=== PATIENT | female | born 1985 | race Hispanic/Latino ===

== ENCOUNTER 2018-03-30 14:07 | Emergency (ER) | payer BC ==
[2018-03-30 14:53] LABS: BASOPHILS % 0.3 % (0.0-1.0); EOSINOPHILS # (AUTO) 0.1 (0.0-0.4); EOSINOPHILS % 0.5 % (0.0-6.0); HEMATOCRIT 38.9 % (34.2-44.1); HEMOGLOBIN 13.5 g/dL (12.0-16.0); LYMPHOCYTES # (AUTO) 3.4 (1.0-3.2); LYMPHOCYTES % 27.8 % (18.0-39.1); MEAN CORPUSCULAR HEMOGLOBIN 30.1 pg (28-32); MEAN CORPUSCULAR HGB CONC 34.7 g/dL (31-35); MEAN CORPUSCULAR VOLUME 86.6 fL (81-99); MONOCYTES # (AUTO) 0.9 (0.2-0.8); MONOCYTES % 7.1 % (4.4-11.3); NEUTROPHILS # (AUTO) 7.9 (2.1-6.9); NEUTROPHILS % 63.8 % (38.7-80.0); PLATELET COUNT 197 x10e3/uL (140-360); RED BLOOD COUNT 4.49 x10e6/uL (3.6-5.1); RED CELL DISTRIBUTION WIDTH 13.1 % (11.7-14.4)
[2018-03-30 15:05] LABS: ALANINE AMINOTRANSFERASE 16 IU/L (0-55); ALBUMIN 3.5 g/dL (3.5-5.0); ALBUMIN/GLOBULIN RATIO 0.8 (0.8-2.0); ALKALINE PHOSPHATASE 93 IU/L (40-150); ANION GAP 15.9 mmol/L (8-16); BLOOD UREA NITROGEN 7 mg/dL (7-26); BUN/CREATININE RATIO 11 (6-25); CALCIUM 9.9 mg/dL (8.4-10.2); CARBON DIOXIDE 22 mmol/L (22-29); CHLORIDE 104 mmol/L (98-107); CREATINE KINASE 75 IU/L (29-168); CREATININE, SERUM 0.65 mg/dL (0.57-1.11); EST GLOMERULAR FILTRATION RATE > 60 ML/MIN (60-); GLUCOSE 103 mg/dL (74-118); POTASSIUM 3.9 mmol/L (3.5-5.1); SODIUM 138 mmol/L (136-145)
--- NOTE | 2018-03-30 15:11 | Diagnostic Imaging Report ---
EXAM: US OB COMPLETE SINGLE GEST DATE: 03/30/2018 12:00 AM INDICATION: , feels faint, pressure and vagina Patient is uncertain of her last menstrual period COMPARISON: None TECHNIQUE: Multiple transabdominal images of the pelvis were obtained. FINDINGS: G 2P1A 0 LMP unknown GA by FLAVIO: 20w6d GA by U/S: 21w4d Measurements: BPD 5.27 cm 22w0d HC 19.08 cm 21w2d AC 16.32cm 21w3d FL 3.68cm 21w5d Estimated Weight: 431gm (0 lbs. 15 oz) [<Hadlock>] Cervical Length: 3.3cm Amniotic Fluid Index: 17.8 cm Heart Rate: 153 bpm Type of Gestation: [place] Intrauterine Position: Cephalic size: appropriate for gestational age motion and organs seen: Bladder Stomach Four chamber cardiac view Kidneys Heart rate 153 bpm Umbical cord insertion 3 vessel cord No abnormalities identified. Placental Location: Posterior There is no evidence of placenta previa. Amniotic fluid volume is within normal range. There is no funneling of the internal os. IMPRESSION: Single living intrauterine without abnormality identified. Signed by: Dr. Ryan Moralez M.D. on 03/30/2018 3:07 PM
[2018-03-30 15:14] LABS: HCG,QUANTITATIVE 12408.71 mIU/mL (0-10)
[2018-03-30 17:01] LABS: CLARITY,URINE CLEAR (CLEAR); COLOR,URINE YELLOW (YELLOW)
[2018-03-30 17:02] LABS: BILIRUBIN,URINE NEGATIVE (NEGATIVE); KETONES,URINE TRACE (NEGATIVE); LEUKOCYTE ESTERASE ,URINE TRACE (NEGATIVE); NITRITE,URINE NEGATIVE (NEGATIVE); PROTEIN,URINE DIPSTICK NEGATIVE (NEGATIVE); URINE UROBILINOGEN 0.2 mg/dL (0.2 - 1)
[2018-03-30 17:03] LABS: BACTERIA,URINE FEW /HPF; EPITHELIAL CELLS,URINE FEW /LPF
[2018-03-30 17:43] VITALS: BP 101/99
== END 2018-03-30 17:42 | disposition home or self-care (01) ==
LOC: ER 14:07
DX: O99.342 Other mental disorders complicating pregnancy, second trimester (principal); F41.1 Generalized anxiety disorder; Z3A.00 Weeks of gestation of pregnancy not specified
CPT/HCPCS: 36415; 76805; 80053; 81001; 82550; 82553; 84484; 84702; 85025; 99284

== ENCOUNTER 2019-11-27 11:09 | Emergency (ER) | payer BC, OTHER ==
[~2019-11-27] VITALS: Ht 154.9 cm; Wt 74.8 kg
--- NOTE | 2019-11-27 11:32 | Emergency Department Note ---
History of Present Illnes History of Present Illness Chief Complaint: General Medicine Complaints History of Present Illness This is a 34 year old female c/o ARMS, LEGS, FACE TINGLING SINCE FRIDAY. STATES SHE TOOK WOMEN'S ONCE A DAY VITAMIN AND FELT SHE WAS ALLERGIC 2 WKS AGO SHE QUIT TAKING THE VITAMINS AND WAS STARTED ON 6 DAYS OF PREDNISONE 40 MG AND FINISHED ON FRIDAY. PT STATES HER BACK IS HURTING A LOT AND HAS A HEADACHE AND EARS FEEL TIGHT......PT IS NO ACUTE DISTRESS AT TIME OF TRIAGE. PT AAOX4. AMBULATORY STEADY GAIT. NO NEURO DEF. AT TIME OF TRIAGE. LMP 11/07. NO COVID S/S. 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 Any updates have been documented here. Past Medical History Recent Fever: No Clinical Suspicion of Infectio: No New/Unexplained Change in Ment: No Past Medical History: Anxiety Past Surgical History: None Social History Smoking Cessation: Never Smoker Counseling Performed: No Alcohol Use: None Any Illegal Drug Use: No TB Exposure/Symptoms: No Physically hurt or threatened: No Family History Family history of heart diseas: No Other Last Tetanus: UNK Any Pre-Existing Lines (PICC,: No Review of Systems Review of Systems Constitutional: Reports no symptoms EENTM: Reports no symptoms Cardiovascular: Reports no symptoms Respiratory: Reports no symptoms Gastrointestinal: Reports no symptoms Genitourinary: Reports no symptoms Musculoskeletal: Reports no symptoms Integumentary: Reports no symptoms Neurological: Reports as per HPI, Reports headache, Reports paresthesia Psychological: Reports no symptoms Endocrine: Reports no symptoms Hematological/Lymphatic: Reports no symptoms Physical Exam Related Data Allergies: Coded Allergies: No Known Allergies (Unverified , 03/30/18) Triage Vital Signs Vital Signs Date Time Temp Pulse Resp B/P (MAP) Pulse Ox O2 Delivery O2 Flow Rate FiO2 11/27/19 11:12 98.2 88 16 134/90 99 Room Air Vital signs reviewed: Yes Physical Exam CONSTITUTIONAL Constitutional: Present well-developed, Present well-nourished HENT HENT: Present normocephalic, Present atraumatic, Present oropharynx clear/moist, Present nose normal HENT L/R: Present left ext ear normal, Present right ext ear normal EYES Eyes: Reports PERRL, Reports conjunctivae normal NECK Neck: Present ROM normal PULMONARY Pulmonary: Present effort normal, Present breath sounds normal CARDIOVASCULAR Cardiovascular: Present regular rhythm, Present heart sounds normal, Present capillary refill normal, Present normal rate GASTROINTESTINAL Abdominal: Present soft, Present nontender, Present bowel sounds normal GENITOURINARY Genitourinary: Present exam deferred SKIN Skin: Present warm, Present dry MUSCULOSKELETAL Musculoskeletal: Present ROM normal NEUROLOGICAL Neurological: Present alert, Present oriented x 3, Present no gross motor or sensory deficits PSYCHOLOGICAL Psychological: Present mood/affect normal, Present judgement normal Assessment & Plan Medical Decision Making MDM C/O TINGLING SENSATION OVER ENTIRE BODY, MILD LOMBARDI'S X 2 DAYS AFTER TAKING 6 DAY COURSE OF 40 MG QD PREDNISONE - LIKELY S/E OF PREDNISONE, PHYSICAL EXAM NORMAL Reassessment Reassessment DC HOME, F/U PCP FRIDAY, RTED PRN Assessment & Plan Final Impression: (1) Medication side effect (2) Paresthesia Depart Disposition: HOME, SELF-CARE Last Vital Signs Date Time Temp Pulse Resp B/P (MAP) Pulse Ox O2 Delivery O2 Flow Rate FiO2 11/27/19 11:12 98.2 88 16 134/90 99 Room Air STAR EARL MD Nov 27, 2019 11:32
--- OUTSIDE RECORDS SUMMARY | 2019-11-27 11:37 | XMS REPORT | Continuity of Care Document ---
Author Author [facility], [facility] Address Unknown Phone Unavailable Care Team Providers Care Television News Producer Name Role Phone Ortho[employer]tag Information [employer] Unavailable Un available Problems No Data Provided for This Section Medications Medication Details Route Status Patient Instructions Ordering Provider Order Date Source amoxicillin 875 mg oral tablet 875 mg = 1 tab, PO, Q12H, X 10 day, # 20 tab, 0 Refill(s), [facility] [facility] [id number] No Longer Active 12/21/2017 [facility] Allergies, Adverse Reactions, Alerts No Known Medication Allergies Immunizations No Data Provided for This Section Results Order Name Results Value Reference Range Date Interpretation Comments Source URINE AND STOOL POC UA Nit Negative *NA* (12/21/17 10:51 AM) Negative 12/21/2017 [facility] URINE AND STOOL POC UA Uro 0.2 0.1 - 1.0 12/21/2017 [facility] URINE AND STOOL POC UA Bili Negative *NA* (12/21/17 10:51 AM) Negative 12/21/2017 [facility] URINE AND STOOL POC UA Bld Negative *NA* (12/21/17 10:51 AM) Negative 12/21/2017 [facility] URINE AND STOOL POC UA Glu Negative mg/dL Negative mg/dL 12/21/2017 [facility] URINE AND STOOL POC UA Prot Negative mg/dL Negative mg/dL 12/21/2017 [facility] URINE AND STOOL POC UA Ket Negative mg/dL Negative mg/dL 12/21/2017 [facility] URINE AND STOOL POC UA pH 6.5 5.0 - 8.0 12/21/2017 [facility] URINE AND STOOL POC UA SG 1.020 <=1.030 12/21/2017 [facility] URINE AND STOOL POC UA LeukEst Negative *NA* (12/21/17 10:51 AM) Negative 12/21/2017 [facility] URINE AND STOOL POC UA Color Yellow *NA* (12/21/17 10:51 AM) Yellow 12/21/2017 [facility] URINE AND STOOL POC UA Turbidity Clear *NA* (12/21/17 10:51 AM) Clear 12/21/2017 [facility] Pathology Reports No Data Provided for This Section Diagnostic Reports No Data Provided for This Section Consultation Notes No Data Provided for This Section Discharge Summaries No Data Provided for This Section History and Physicals No Data Provided for This Section Vital Signs Vital Sign Value Date Comments Source Respitory Rate 18 12/21/2017 [facility] Temperature Oral (F) 98.3 F 12/21/2017 [facility] Heart Rate 69 12/21/2017 [facility] Height 160.02 cm 12/21/2017 [facility] Weight 71.96 12/21/2017 [facility] BMI Calculated 28.1 12/21/2017 [facility] Systolic (mm Hg) 103 12/21/2017 [facility] Diastolic (mm Hg) 70 12/21/2017 [facility] Encounters Location Location Details Encounter Type Encounter Number Reason For Visit Attending Provider ADM Date DC Date Status Source Outpatient [id number] LESVIA HEATON 12/21/2017 [facility] [place] Outpatient [id number] Lesvia Heaton 12/21/2017 12/22/2017 [facility] Procedures No Data Provided for This Section Assessment and Plan No Data Provided for This Section Plan of Care No Data Provided for This Section Social History Social History Date Source Social History TypeResponse Smoking Status Never smoker; Exposure to Tobacco Smoke None; Cigarette Smoking Last 365 Days No; Reg Smoking Cessation Counseling No entered on: 12/21/17 12/21/2017 [facility] Family History No Data Provided for This Section Advance Directives No Data Provided for This Section Functional Status No Data Provided for This Section
--- OUTSIDE RECORDS SUMMARY | 2019-11-27 11:37 | XMS REPORT | Summary of Care ---
Author Author [facility] [place] Address Unknown Phone Unavailable Encounter CHARITY Forman(FIN) [id number] Date(s): 12/21/17 - 12/21/17 [facility] [place] [facility] [address] [place] [phone] Discharge Disposition: Home or Self Care Attending Physician: Lesvia Heaton MD Vital Signs Most recent to 1 oldest [Reference Range]: Height 160.02 cm (12/21/17 10:22 AM) Temperature Oral 98.3 DegF [96.4-99.1 DegF] (12/21/17 10:22 AM) Blood Pressure 103/70 mmHg [90-140/60-90 mmHg] (12/21/17 10:22 AM) Respiratory Rate 18 BRMIN [14-20 BRMIN] (12/21/17 10:22 AM) Peripheral Pulse 69 bpm Rate [60-100 bpm] (12/21/17 10:22 AM) Weight 71.96 kg (12/21/17 10:22 AM) Body Mass Index 28.1 m2 (12/21/17 10:22 AM) Problem List No data available for this section Allergies, Adverse Reactions, Alerts Substance Reaction Severity Status NKDA Active Medications amoxicillin 875 mg oral tablet 875 mg = 1 tab, PO, Q12H, X 10 day, # 20 tab, 0 Refill(s), Pharmacy: [id number] Start Date: 12/21/17 Stop Date: 12/31/17 Status: Completed Results URINE AND STOOL Most recent to 1 oldest [Reference Range]: POC UA Turbidity Clear [Clear] *NA* (12/21/17 10:51 AM) POC UA Color Yellow [Yellow] *NA* (12/21/17 10:51 AM) POC UA pH [5.0-8.0] 6.5 (12/21/17 10:51 AM) POC UA SG [<=1.030] 1.020 (12/21/17 10:51 AM) POC UA Glu [Negative Negative mg/dL mg/dL] *NA* (12/21/17 10:51 AM) POC UA Bld Negative [Negative] *NA* (12/21/17 10:51 AM) POC UA Ket [Negative Negative mg/dL mg/dL] *NA* (12/21/17 10:51 AM) POC UA Prot Negative mg/dL [Negative mg/dL] *NA* (12/21/17 10:51 AM) POC UA Uro [0.1-1.0 0.2 EU/dL EU/dL] (12/21/17 10:51 AM) POC UA Bili Negative [Negative] *NA* (12/21/17 10:51 AM) POC UA LeukEst Negative [Negative] *NA* (12/21/17 10:51 AM) POC UA Nit Negative [Negative] *NA* (12/21/17 10:51 AM) Immunizations No data available for this section Procedures No data available for this section Social History Social History Type Response Smoking Status Never smoker; Exposure to T obacco Smoke None; Cigarette Smoking Last 365 Days No; Reg Smoking Cessation Counseli ng No entered on: 12/21/17 Assessment and Plan No data available for this section
== END 2019-11-27 12:00 | disposition home or self-care (01) ==
LOC: ER 11:35
DX: R20.2 Paresthesia of skin (principal); T38.0X5A Adverse effect of glucocorticoids and synthetic analogues, initial encounter; F41.9 Anxiety disorder, unspecified
CPT/HCPCS: 99282